=== PATIENT | female | born 2000 | race Asian ===

== ENCOUNTER 2021-07-05 09:37 | Emergency (ER) | payer OTHER ==
[~2021-07-05] VITALS: Ht 157.5 cm; Wt 60.0 kg
[2021-07-05 09:50] VITALS: BP 11/80
--- NOTE | 2021-07-05 10:35 | PHYS DOC ---
Past History Past Surgical History: No Surgical History Alcohol Use: None General Adult EDM: Chief Complaint: SHORTNESS OF BREATH HPI: HPI: Patient is a 20-year-old female presents with midsternal chest pressure that started this morning. Denies radiation of pain. Patient states that pain is worse with movement and is reproducible. Denies recent illness. She did report mild shortness of breath. Patient states that symptoms lasted about 1 hour. Patient reports that symptoms improved when she arrived to the ER. Denying any symptoms at this time. Denies nausea/vomiting/diarrhea. Denies fever. No medical history. Up-to-date on immunizations. Review of Systems: Review of Systems: ROS At least 10 ROS systems have been reviewed and are negative except as documented in the HPI. General: Negative except as outlined in HPI above. Skin: Negative except as outlined in HPI above. HEENT: Negative except as outlined in HPI above. Neck: Negative except as outlined in HPI above. Respiratory: Negative except as outlined in HPI above.. Cardiovascular: Negative except as outlined in HPI above. Abdomen: Negative except as outlined in HPI above. : Negative except as outlined in HPI above. Back/MSK: Negative except as outlined in HPI above. Neuro: Negative except as outlined in HPI above. Psych: Negative except as outlined in HPI above. Allergies: Allergies: Allergies Coded Allergies Type Severity Reaction Last Updated Verified pear Allergy Unknown 07/05/21 Yes Physical Exam: PE: Constitutional: Well developed, well nourished, no acute distress, non-toxic appearance. [] HENT: Normocephalic, atraumatic, bilateral external ears normal, oropharynx moist, no oral exudates, nose normal. [] Eyes: PERRLA, EOMI, conjunctiva normal, no discharge. [] Neck: Normal range of motion, no tenderness, supple, no stridor. [] Cardiovascular:Heart rate regular rhythm, no wheezing Lungs & Thorax: Bilateral breath sounds clear to auscultation [] Abdomen: Bowel sounds normal, soft, no tenderness, no masses, no pulsatile masses. [] Skin: Warm, dry, no erythema, no rash. [] Back: No tenderness, no CVA tenderness. [] Extremities: No tenderness, no cyanosis, no clubbing, ROM intact, no edema. [] Neurologic: Alert and oriented X 3, normal motor function, normal sensory function, no focal deficits noted. [] Psychologic: Affect normal, judgement normal, anxious mood Current Patient Data: Vital Signs: Vital Signs Date Time Temp Pulse Resp B/P (MAP) Pulse Ox O2 Delivery O2 Flow Rate FiO2 07/05/21 09:50 98.0 80 18 11/80 (57) 100 Room Air EKG: EKG: Sinus rhythm. No ST elevation or depression. Heart rate 74 bpm. [] Radiology/Procedures: Radiology/Procedures: [] Heart Score: C/O Chest Pain: No Risk Factors: Risk Factors: DM, Current or recent (<one month) smoker, HTN, HLP, family history of CAD, obesity. Risk Scores: Score 0 - 3: 2.5% MACE over next 6 weeks - Discharge Home Score 4 - 6: 20.3% MACE over next 6 weeks - Admit for Clinical Observation Score 7 - 10: 72.7% MACE over next 6 weeks - Early Invasive Strategies Course & Med Decision Making: Course & Med Decision Making Pertinent Labs and Imaging studies reviewed. (See chart for details) [] Nontoxic-appearing, 20-year-old female presents with midsternal chest pain, mild shortness of breath that started this morning. Patient is denying any symptoms at this time. Patient reports that symptoms resolved when she arrived to the ER. Patient denies recent travel. No history of blood clots. Wells and PERC score of 0. Physical exam is unremarkable. No wheezing heard on physical exam, lungs are clear on auscultation. Work-up in ER consisted of EKG. EKG showed sinus rhythm. No ST elevation or depression. Patient was likely has pleurisy. Patient denies needing anything for pain at this time. Advised patient to take ibuprofen at home for discomfort. Discussed return precautions in length. Patient verbalizes understanding of discharge instructions. Patient is hemodynamically stable upon disposition. Dragon Disclaimer: Dragon Disclaimer: This electronic medical record was generated, in whole or in part, using a voice recognition dictation system. Departure Departure: Impression: Primary Impression: Chest pressure Disposition: HOME / SELF CARE / HOMELESS Condition: STABLE Referrals: SATHISH STYLES DO, [facility] (PCP) Patient Instructions: Chest Pain (Nonspecific), [id number] Additional Instructions: He was seen in the emergency room for some chest pressure, shortness of breath that had resolved on arrival. We did an EKG which showed sinus rhythm. Please follow-up with your PCP. Return to emergency room if you have worsening symptoms or concerns such as increase in chest pressure, shortness of breath. EMERGENCY DEPARTMENT GENERAL DISCHARGE INSTRUCTIONS Thank you for coming to [facility] (ED) today and trusting us with you care. We trust that you had a positivie experience in our Emergency Department. If you wish to speak to the department management, you may call the director at [phone]. YOUR FOLLOW UP INSTRUCTIONS ARE FOLLOWS: 1. Do you have a private Doctor? If you do not have a private doctor, please ask for a resource list of physicians or clinics that may be able to assist you with follow up care. 2. The Emergency Physician has interpreted your x-rays. The X-Ray specialist will also review them. If there is a change in the findings, you will be notified in 48 hours when at all possible. 3. A lab test or culture has been done, your results will be reviewed and you will be notified if you need a change in treatment. ADDITIONAL INSTRUCTIONS AND INFORMATION: 1. Your care today has been supervised by a physician who is specially trained in emergency care. Many problems require more than one evaluation for a complete diagnosis and treatment. We recommend that you schedule your follow up appointment as recommended to ensure complete treatment of you illness or injury. If you are unable to obtain follow up care and continue to have a problem, or if your condition worsens, we recommend that you return to the ED. 2. We are not able to safely determine your condition over the phone nor are we able to give sound medical advice over the phone. For these safety reasons, if you call for medical advice we will ask you to come to the ED for further evaluation. 3. If you have any questions regarding these discharge instructions please call the ED at [phone]. SAFETY INFORMATION: In the interest of safety, wellness, and injury prevention; we encourage you to wear your sealbelt, if you smoke; quite smoking, and we encourage family to use a protective helmet for bicycling and other sporting events that present an increased risk for head injury. IF YOUR SYMPTOMS WORSEN OR NEW SYMPTOMS DEVELOP, OR YOU HAVE CONCERNS ABOUT YOUR CONDITION; OR IF YOUR CONDITION WORSENS WHILE YOU ARE WAITING FOR YOUR FOLLOW UP APPOINTMENT; EITHER CONTACT YOUR PRIMARY CARE DOCTOR, THE PHYSICIAN WHOSE NAME AND NUMBER YOU WERE GIVEN, OR RETURN TO THE ED IMMEDIATELY. BARBARA CHRISTOPHER APRN Jul 05, 2021 10:35
--- NOTE | 2021-07-06 19:12 | EKG ---
[address] [address] Test Date: 2021-07-05 Test Time: 10:32:27 Pat Name: YUDITH GARCIA Department: Room: Gender: F Blocker Hand: : 2000 Requested By: BARBARA CHRISTOPHER Order Number: [id number] Reading MD: Ronnie Pinon Measurements Intervals [place] Rate: 74 P: 26 [place]: 164 QRS: 56 QRSD: 82 T: 43 QT: 374 QTc: 416 Interpretive Statements SINUS RHYTHM NO SPECIFIC ECG ABNORMALITIES Electronically Signed On 07-08-2021 18:31:04 CDT by Ronnie Pinon
== END 2021-07-05 11:30 | disposition home or self-care (01) ==
LOC: ER 09:37
DX: R07.2 Precordial pain (principal); R06.02 Shortness of breath; Z91.018 Allergy to other foods
CPT/HCPCS: 93005; 99283